=== PATIENT | male | born 1990 | race African-American/Black ===

== ENCOUNTER 2021-10-07 11:47 | Emergency (ER) | payer SELFPAY ==
[~2021-10-07] VITALS: Ht 182.9 cm; Wt 81.0 kg
[2021-10-07] MEDS ORDERED: ONDANSETRON 4MG ODT PO STA (12:19)
[2021-10-07] MEDS ORDERED: ACETAMINOPHEN 325MG TABLET PO STA (12:19)
[2021-10-07 12:43] LABS: BASOPHILS % 0.4 % (0.0-2.0); EOSINOPHILS % 0.1 % (0.0-5.0); HEMATOCRIT. 47.2 % (42.0-52.0); HEMOGLOBIN. 15.1 g/dL (14.0-18.0); LYMPHOCYTES % 18.4 % (20.0-50.0); MEAN CORPUSCULAR HEMOGLOBIN 25.4 pg (28.0-32.0); MEAN CORPUSCULAR VOLUME 79.4 fL (80.0-94.0); MEAN PLATELET VOLUME 7.6 fl (7.4-10.4); MONOCYTES % 7.6 % (2.0-8.0); NEUTROPHILS % 73.5 % (40.0-76.0); PLATELET 214 x1000/uL (130-400); RED BLOOD CELL COUNT 5.94 mill/uL (4.7-6.1); RED CELL DISTRIBUTION WIDTH 15.2 % (11.6-14.6)
[2021-10-07 12:50] LABS: CHLORIDE 102 mEq/L (98-107)
[2021-10-07 12:54] LABS: ETHANOL BLOOD < 10 mg/dL
[2021-10-07 16:12] LABS: *AMPHETAMINES SCREEN URINE PRESUMTIVE POSITIVE (NEGATIVE); *BARBITURATES SCREEN URINE NEGATIVE (NEGATIVE); *BENZODIAZEPINES SCREEN URINE NEGATIVE (NEGATIVE); *COCAINE SCREEN URINE PRESUMTIVE POSITIVE (NEGATIVE); METHADONE URINE SCREEN NEGATIVE (NEGATIVE)
[2021-10-07 16:13] LABS: CANNABINOID URINE SCREEN NEGATIVE (NEGATIVE); OPIATES URINE SCREEN NEGATIVE (NEGATIVE); PHENCYCLIDINE URINE SCREEN NEGATIVE (NEGATIVE)
[2021-10-08] MEDS: FLUOXETINE HCL 10 MG CAPSULE PO SCH (09:00)
[2021-10-08] MEDS ORDERED: QUETIAPINE FUMARATE 50MG TABLET PO SCH (21:00)
[2021-10-09] MEDS: FLUOXETINE HCL 10 MG CAPSULE PO SCH (09:56)
[2021-10-09 11:55] VITALS: BP 124/88
== END 2021-10-09 11:58 | disposition home or self-care (01) ==
LOC: ER 11:55
DX: R45.851 Suicidal ideations (principal); F15.10 Other stimulant abuse, uncomplicated; F14.10 Cocaine abuse, uncomplicated; R51.9 Headache, unspecified; Z59.00 Homelessness unspecified; Z20.822 Contact with and (suspected) exposure to COVID-19
CPT/HCPCS: 36415; 70450; 80053; 80305; 80320; 83690; 84484; 85025; 93005; 99291; C9803; Q0162; U0003; U0005; Z7610; G0480